=== PATIENT | female | born 1985 | race Caucasian/White ===

== ENCOUNTER 2017-11-23 12:36 | Emergency (ER) | payer BC ==
[~2017-11-23] VITALS: Ht 167.6 cm; Wt 96.0 kg
[2017-11-23 14:39] LABS: CLARITY URINE CLEAR (CLEAR); COLOR URINE DARK YELLOW (YELLOW); KETONES URINE TRACE (NEGATIVE); LEUKOCYTE ESTERASE URINE NEGATIVE (NEGATIVE); NITRITE URINE NEGATIVE (NEGATIVE); OCCULT BLOOD URINE NEGATIVE (NEGATIVE); PROTEIN URINE NEGATIVE (NEGATIVE); SPECIFIC GRAVITY URINE 1.021 (1.005-1.030)
[2017-11-23] MEDS ORDERED: VISCOUS LIDOCAINE 2% 15 ML UDC PO STA (15:42)
[2017-11-23] MEDS ORDERED: ONDANSETRON 4MG ODT PO STA (15:42)
[2017-11-23] MEDS ORDERED: MAGNESIUM/ALUMINUM HYDROXIDE/SIMETHICONE 30ML UDC PO STA (15:42)
[2017-11-23 17:48] LABS: BASOPHILS % 0.3 % (0.0-2.0); EOSINOPHILS % 0.4 % (0.0-5.0); HEMATOCRIT. 38.4 % (36.0-48.0); HEMOGLOBIN. 13.3 g/dL (12.0-16.0); LYMPHOCYTES % 14.9 % (20.0-50.0); MEAN CORPUSCULAR HEMOGLOBIN 27.8 pg (28.0-32.0); MEAN CORPUSCULAR VOLUME 80.1 fL (81.0-99.0); MEAN PLATELET VOLUME 8.6 fl (7.4-10.4); NEUTROPHILS % 81.4 % (40.0-76.0); PLATELET 324 x1000/uL (130-400); RED BLOOD CELL COUNT 4.79 mill/uL (4.2-5.4); RED CELL DISTRIBUTION WIDTH 13.5 % (11.6-14.6)
[2017-11-23 17:54] LABS: CHLORIDE 108 mEq/L (98-107)
[2017-11-23 18:33] LABS: HCG SCREEN NEGATIVE
[2017-11-23 20:00] VITALS: BP 107/62
== END 2017-11-23 20:28 | disposition home or self-care (01) ==
LOC: ER 13:31
DX: K29.50 Unspecified chronic gastritis without bleeding (principal); R10.9 Unspecified abdominal pain; R74.0 Nonspecific elevation of levels of transaminase and lactic acid dehydrogenase [LDH]; Z90.49 Acquired absence of other specified parts of digestive tract
CPT/HCPCS: 36415; 74176; 76705; 80053; 81003; 81025; 83690; 84703; 85025; 99285; Q0162

== ENCOUNTER 2019-04-06 09:14 | Emergency (ER) | payer BC ==
[~2019-04-06] VITALS: Ht 160 cm; Wt 95.0 kg
[2019-04-06] MEDS ORDERED: LIDOCAINE 1%/EPI 1:100,000 10 ML VIAL IJ ONE (13:00)
[2019-04-06] MEDS ORDERED: BACITRACIN ZINC OINT UDPKT TOP ONE (13:00)
[2019-04-06] MEDS ORDERED: LIDOCAINE HCL/EPINEPHRINE 1%-EPI 1:100,000 20 ML VIAL INFIL NR (14:00)
[2019-04-06 14:09] VITALS: BP 128/82
== END 2019-04-06 14:19 | disposition home or self-care (01) ==
LOC: ER 09:14
DX: N75.0 Cyst of Bartholin's gland (principal); F12.10 Cannabis abuse, uncomplicated; Z90.49 Acquired absence of other specified parts of digestive tract
CPT/HCPCS: 99281; J3490

== ENCOUNTER 2021-03-19 04:04 | Emergency (ER) | payer SELFPAY ==
[~2021-03-19] VITALS: Ht 160 cm; Wt 112.0 kg
[2021-03-19 04:20] VITALS: BP 151/76
[2021-03-19] MEDS ORDERED: IBUPROFEN 600MG TABLET PO ONE (04:45)
== END 2021-03-19 09:35 | disposition home or self-care (01) ==
LOC: ER 04:04
DX: U07.1 COVID-19 (principal); J06.9 Acute upper respiratory infection, unspecified; R50.9 Fever, unspecified; F12.10 Cannabis abuse, uncomplicated; I10 Essential (primary) hypertension; Z90.49 Acquired absence of other specified parts of digestive tract; Z98.890 Other specified postprocedural states; Z98.51 Tubal ligation status
CPT/HCPCS: 71045; 81025; 87426; 99284

== ENCOUNTER 2021-09-16 19:17 | Emergency (ER) | payer OTHER, SELFPAY ==
[~2021-09-16] VITALS: Ht 157.5 cm; Wt 98.8 kg
[2021-09-16 19:32] VITALS: BP 118/64
[2021-09-16 20:16] LABS: CLARITY URINE CLEAR (CLEAR); COLOR URINE YELLOW (YELLOW); KETONES URINE TRACE (NEGATIVE); LEUKOCYTE ESTERASE URINE NEGATIVE (NEGATIVE); NITRITE URINE NEGATIVE (NEGATIVE); OCCULT BLOOD URINE NEGATIVE (NEGATIVE); PH URINE >=9.0 (4.5-8.0); PROTEIN URINE 1+ (NEGATIVE); SPECIFIC GRAVITY URINE 1.029 (1.005-1.030)
[2021-09-16] MEDS ORDERED: VISCOUS LIDOCAINE 2% 15 ML UDC PO ONE (21:45)
[2021-09-16] MEDS ORDERED: PANTOPRAZOLE 40MG DR TABLET PO ONE (21:45)
[2021-09-16] MEDS ORDERED: MAGNESIUM/ALUMINUM HYDROXIDE/SIMETHICONE 30ML UDC PO ONE (21:45)
[2021-09-16] MEDS ORDERED: PANT20TA17 MT (23:00)
== END 2021-09-16 23:16 | disposition home or self-care (01) ==
LOC: ER 19:17
DX: K29.70 Gastritis, unspecified, without bleeding (principal); E11.9 Type 2 diabetes mellitus without complications; I10 Essential (primary) hypertension; Z90.49 Acquired absence of other specified parts of digestive tract; Z98.890 Other specified postprocedural states
CPT/HCPCS: 81003; 81025; 99284